=== PATIENT | male | born 1995 | race Caucasian/White ===

== ENCOUNTER → 2017-02-11 | Outpatient (CLI) | payer OTHER ==
--- NOTE | 2017-02-11 13:17 | Diagnostic Imaging Report ---
INDICATION: Left-sided scrotal lump. FINDINGS: Testicular parenchyma appeared normal and symmetric bilaterally. There is normal color Doppler blood flow to both testicles. No testicular mass, torsion, or orchitis. Left epididymis is somewhat prominent diffusely and mildly hypoechoic. Its vascularity is borderline elevated, and mild epididymitis in the appropriate clinical scenario could not be excluded. There was no evidence for orchitis. Incidental epididymal head cyst on the left is a benign finding measuring 9 mm present. There is a small right-sided hydrocele showing no complexity. IMPRESSION: Normal appearance of the testicles. Mildly prominent borderline hypervascular and hypoechoic left epididymis. Mild changes of epididymitis could not be excluded. Benign left epididymal head cyst and simple right hydrocele. Dictated by: Dictated on workstation # [id number]
== END ==
LOC: RAD 11:58
PROVIDERS: ATTEND Internal Medicine
DX: N50.3 Cyst of epididymis (principal); N43.3 Hydrocele, unspecified
CPT/HCPCS: 76870